=== PATIENT | male | born 1990 | race Native Hawaiian/Other Pacific Islander ===

== ENCOUNTER 2016-06-21 03:39 | Emergency (ER) | payer OTHER ==
[2016-06-21 03:49] VITALS: BP 100/60; PULSE 106; RESP 18; TEMP 99.7; O2SAT 100
--- NOTE | 2016-06-21 04:26 | ED PDOC ---
HPI: Abdomen Chief Complaint (Provider): Dehydration History Per: Patient History/Exam Limitations: no limitations Onset/Duration Of Symptoms: Hrs (2 hours) Outside of [place] travel?: No Current Symptoms Are (Timing): Still Present Pain Scale Rating Of: 0 <Eleazar Nogueira - Last Filed: 06/21/16 04:56> <Amber Soriano - Last Filed: 06/21/16 06:11> Time Seen by Provider: 06/21/16 04:07 Chief Complaint (Nursing): GI Problem Additional Complaint(s): Pt. here today complaining of "dehydration." Pt. reports approximately 2 hours before arrival to the E.D. he was lying in bed when he felt lightheaded and nauseous. Pt. reports subsequently got up to take a shower and did not feel any better. Pt. does admit to having drank 3 to 4 shots of whisky and 1 glass of wine (chardinay) and 2 bottles of coke within the past 24hours. Pt. denies any loss of consciousness, palpitations, chest pain, shortness of breath. Pt. denies previous episode 1 year ago and felt better by drinking "electrolyte" water. Pt. denies any N/V/D/F/C. (Eleazar Nogueira) Supervising Attending Note - Supervising Attending Note The Documented history was done by the: Physician Therapeutic Activities Services Worker, Attending Physician The documented physical exam was done by the: Physician Therapeutic Activities Services Worker, Attending Physician The documented procedures were done by the: Physician Therapeutic Activities Services Worker, Attending Physician - Attestation: I have personally seen and examined this patient.: Yes I have fully participated in the care of the patient.: Yes I have reviewed all pertinent clinical information: Yes <Amber Soriano - Last Filed: 06/21/16 06:11> Past Medical History - Medical History PMH: No Chronic Diseases - Surgical History Surgical History: No Surg Hx - Family History Family History: States: Unknown Family Hx - Living Arrangements Living Arrangements: With Friends/Others (roommate) - Social History Current smoker - smoking cessation education provided: No Alcohol: Social Drugs: Denies <Eleazar Nogueira - Last Filed: 06/21/16 04:56> <Amber Soriano - Last Filed: 06/21/16 06:11> Vital Signs: Last Vital Signs Temp 99.7 F H 06/21/16 03:46 Pulse 106 H 06/21/16 03:46 Resp 18 06/21/16 03:46 BP 100/60 06/21/16 03:46 Pulse Ox 100 06/21/16 04:56 - Allergies Allergies/Adverse Reactions: Allergies Allergy/AdvReac Type Severity Reaction Status Date / Time No Known Allergies Allergy Verified 06/21/16 03:45 Review of Systems Constitutional: Positive for: Malaise. Negative for: Fever, Chills, Sweats Eyes: Negative for: Pain, Vision Change ENT: Negative for: Ear Pain, Nose Pain Respiratory: Negative for: Cough, Shortness of Breath Gastrointestinal: Negative for: Nausea, Vomiting, Abdominal Pain, Diarrhea Genitourinary Male: Positive for: Frequency. Negative for: Dysuria, Incontinence, Hematuria, Penile Discharge, Rash Musculoskeletal: Negative for: Neck Pain, Shoulder Pain, Back Pain Skin: Negative for: Rash, Lesions Neurological: Positive for: Dizziness. Negative for: Weakness, Numbness, Incoordination, Change in Speech, Confusion, Seizures, Altered Mental Status, Headache Psych: Negative for: Anxiety, Depression <Eleazar Nogueira - Last Filed: 06/21/16 04:56> Physical Exam - Reviewed Vital Signs Reviewed: Yes - Physical Exam Appears: Positive for: Non-toxic, No Acute Distress Head Exam: Positive for: ATRAUMATIC Skin: Positive for: Normal Color, Warm, Dry Eye Exam: Positive for: EOMI, PERRL ENT: Positive for: Normal ENT Inspection. Negative for: Tonsillar Exudate Neck: Positive for: Painless ROM, Supple Cardiovascular/Chest: Positive for: Tachycardia. Negative for: Murmur Respiratory: Positive for: Normal Breath Sounds. Negative for: Decreased Breath Sounds, Respiratory Distress Gastrointestinal/Abdominal: Positive for: Soft. Negative for: Tenderness Extremity: Negative for: Pedal Edema, Calf Tenderness Neurologic/Psych: Positive for: Alert, Oriented <Eleazar Nogueira - Last Filed: 06/21/16 04:56> - ECG O2 Sat by Pulse Oximetry: 100 <Eleazar Nogueira - Last Filed: 06/21/16 04:56> <Amber Soriano - Last Filed: 06/21/16 06:11> - Progress ED Course And Treament: EKG (Eleazar Nogueira) Medical Decision Making <Eleazar Nogueira - Last Filed: 06/21/16 04:56> <Amber Soriano - Last Filed: 06/21/16 06:11> Medical Decision Makin y.o. male with no significant PMHx AAOx3 with good insight into his current condition with a normal sinus rhythm with complete resolution of symptoms during his evaluation wanting to go home. (Eleazar Nogueira) Disposition - Patient ED Disposition Is Patient to be Admitted: No Discussed With : Amber Soriano - Disposition Disposition: Routine/Home Disposition Time: 04:30 <Eleazar Nogueira - Last Filed: 06/21/16 04:56> <Amber Soriano - Last Filed: 06/21/16 06:11> - Clinical Impression Clinical Impression: Dehydration - Disposition Referrals: [facility] [Outside] Condition: GOOD Additional Instructions: Pt. advised to return to E.D. if symptoms return. Pt. to follow up with PMD. Instructions: Dehydration (ED)
--- NOTE | 2016-06-21 10:19 | CARD ---
APPROVED REPORT EKG Measurement Heart [id number] <Conclusion> Normal sinus rhythm Possible Left atrial enlargement Rightward axis ??Septal infarct, age undetermined Abnormal ECG Please repeat to confirm.
== END 2016-06-21 05:00 | disposition home or self-care (01) ==
LOC: H.ER 03:39
DX: E86.0 Dehydration (principal); R42 Dizziness and giddiness